=== PATIENT | female | born 1970 | race Caucasian/White ===

== ENCOUNTER 2017-08-02 16:38 | Emergency (ER) | payer BC, OTHER ==
[~2017-08-02] VITALS: Ht 165.1 cm; Wt 59.0 kg
[~2017-08-02 16:38] MED LIST: LORA-953; TRIA5PAS4
[2017-08-02 16:59] VITALS: BP 130/86
[2017-08-02] MEDS ORDERED: LIDOCAINE 1% INJ 50 ML MDV IJ ONE ×2 (17:14→17:30)
[2017-08-02] MEDS ORDERED: TDAP [DIPH/PERTUSSIS/TET] 0.5 ML VIAL IM ONE ×2 (17:30→17:53)
[2017-08-02] MEDS ORDERED: MUPIROCIN OINT 2% 22 GM TUBE TP ONE (18:00)
[2017-08-02] MEDS ORDERED: MUPIROCIN OINT 2% 22 GM TUBE ONE (18:12)
== END 2017-08-02 18:22 | disposition home or self-care (01) ==
LOC: ER 16:39
DX: L03.011 Cellulitis of right finger (principal); L02.511 Cutaneous abscess of right hand; Z88.0 Allergy status to penicillin; Z91.040 Latex allergy status; Z90.710 Acquired absence of both cervix and uterus
CPT/HCPCS: 90715; A4606; A6402; J3490; Z7610

== ENCOUNTER 2018-05-03 15:32 | Outpatient (CLI) | payer BC ==
[2018-05-03 18:35] LABS: APPEARANCE,URINE CLEAR (CLEAR); BASOPHILS # (AUTO) 0.1 /CMM (0.0-0.2); BASOPHILS % (AUTO) 0.9 % (0.0-2.0); BILIRUBIN,URINE NEGATIVE (NEGATIVE); BLOOD, URINE TRACE Ery/uL (NEGATIVE); COLOR,URINE YELLOW (YELLOW); EOSINOPHILS % (AUTO) 1.5 % (0.0-6.0); HEMATOCRIT 44 % (33-45); HEMOGLOBIN 14.7 g/dL (11.5-14.8); KETONES,URINE NEGATIVE (NEGATIVE); LEUKOCYTE ESTERASE ,URINE NEGATIVE (NEGATIVE); LYMPHOCYTES # (AUTO) 1.9 /CMM (0.8-4.8); LYMPHOCYTES % (AUTO) 30.1 % (20.0-44.0); MEAN CORPUSCULAR HGB CONC 33 g/dl (31.0-36.0); MEAN CORPUSCULAR VOLUME 94 fL (82-100); MONOCYTES # (AUTO) 0.3 /CMM (0.1-1.30); NEUTROPHILS # (AUTO) 3.9 /CMM (1.8-8.9); NEUTROPHILS % (AUTO) 62.5 % (43.0-81.0); NITRITE, URINE NEGATIVE (NEGATIVE); PH,URINE 5.5 (5.0-8.0); PLATELET COUNT (AUTO) 283 /CMM (150-450); PROTEIN,URINE NEGATIVE (NEGATIVE); RED BLOOD CELL COUNT(AUTO) 4.66 MIL/uL (4.0-5.2); UGLUCOSE NEGATIVE (NEGATIVE); UROBILINOGEN,URINE 0.2 EU/dL (0.2); WHITE BLOOD COUNT (AUTO) 6.3 K/uL (4.3-11.0)
[2018-05-03 18:56] LABS: ALBUMIN 4.3 g/dL (3.4-5.0); BILIRUBIN,TOTAL 0.5 mg/dL (0.2-1.0); CALCIUM, SERUM 9.4 mg/dL (8.5-10.1); CREATININE 0.7 mg/dL (0.6-1.3); POTASSIUM 3.3 mmol/L (3.5-5.1); TOTAL PROTEIN, SERUM 7.6 g/dL (6.4-8.2)
[2018-05-03 19:04] LABS: BACTERIA,URINE Few /HPF (None Seen); RBC,URINE 0-2 /HPF (0-2); SQUAMOUS EPITHELIAL CELL,UR Few /HPF (None Seen); WBC,URINE 0-2 /HPF (0-3)
[2018-05-03 19:07] LABS: THYROID STIMULATING HORMONE 2.409 uIU/mL (0.358-3.74)
[2018-05-07 14:09] LABS: IMMUNOGLOBULIN E,TOTAL 25 IU/mL (0-100)
[2018-05-12 14:13] LABS: *FOLIC ACID 3.6 ng/mL (>3.0)
== END 2018-05-03 23:59 | disposition home or self-care (01) ==
LOC: LAB 15:32
PROVIDERS: ATTEND Legal Medicine
DX: Z00.00 Encounter for general adult medical examination without abnormal findings (principal); E03.9 Hypothyroidism, unspecified; D64.9 Anemia, unspecified; R10.9 Unspecified abdominal pain; E55.9 Vitamin D deficiency, unspecified
CPT/HCPCS: 36415; 80053-TC; 80061-TC; 81000-TC; 82306; 82728-TC; 82785; 83540-TC; 83550-TC; 84439-TC; 84443-TC; 85025-TC; 86003

== ENCOUNTER 2018-10-27 09:30 | Outpatient (CLI) | payer BC | END 2018-10-27 23:59 | disposition home or self-care (01) | LOC: WOU 09:30 | PROVIDERS: ATTEND Podiatrist Foot & Ankle Surgery | DX: L60.3 Nail dystrophy (principal); L03.032 Cellulitis of left toe; M79.675 Pain in left toe(s); Z88.6 Allergy status to analgesic agent; Z91.040 Latex allergy status; Z88.0 Allergy status to penicillin; Z91.09 Other allergy status, other than to drugs and biological substances; Z98.82 Breast implant status; Z90.710 Acquired absence of both cervix and uterus | CPT/HCPCS: G0463 ==

== ENCOUNTER 2018-12-01 13:25 | Outpatient (CLI) | payer BC ==
[2018-12-01] MEDS ORDERED: PHENOL TP ONE (14:00)
== END 2018-12-01 23:59 | disposition home or self-care (01) ==
LOC: WOU 13:25
PROVIDERS: ATTEND Podiatrist Foot & Ankle Surgery
DX: L60.3 Nail dystrophy (principal); L03.032 Cellulitis of left toe; M79.675 Pain in left toe(s); Z88.1 Allergy status to other antibiotic agents; Z91.040 Latex allergy status; Z88.5 Allergy status to narcotic agent; Z91.09 Other allergy status, other than to drugs and biological substances
CPT/HCPCS: 11750; A6402

== ENCOUNTER 2019-02-09 09:00 | Outpatient (CLI) | payer BC ==
[~2019-02-09 09:00] MED LIST changes: +PHENOL MC ONE
== END 2019-02-09 23:59 | disposition home or self-care (01) ==
LOC: WOU 09:00
PROVIDERS: ATTEND Podiatrist Foot & Ankle Surgery
DX: L60.3 Nail dystrophy (principal); L03.032 Cellulitis of left toe; M79.672 Pain in left foot
CPT/HCPCS: 11750; J3490

== ENCOUNTER 2019-02-16 10:00 | Outpatient (CLI) | payer BC ==
[~2019-02-16 10:00] MED LIST changes: -PHENOL MC ONE
== END 2019-02-16 23:59 | disposition home or self-care (01) ==
LOC: WOU 10:00
PROVIDERS: ATTEND Podiatrist Foot & Ankle Surgery
DX: L60.3 Nail dystrophy (principal); L03.032 Cellulitis of left toe; M79.675 Pain in left toe(s)
CPT/HCPCS: G0463

== ENCOUNTER 2021-06-13 14:03 | Emergency (ER) | payer BC ==
[~2021-06-13] VITALS: Ht 165.1 cm; Wt 46.7 kg
[2021-06-13 14:14] VITALS: BP 129/88
[2021-06-13] MEDS ORDERED: IBUP-1955 PO (14:36)
--- NOTE | 2021-06-13 14:40 | NUR ---
COVID ANTIGEN AND PCR SWABS DONE AND SENT TO THE LAB
--- NOTE | 2021-06-13 15:03 | NUR ---
Patient discharged to home in stable condition. Written and verbal after care instructions given. Patient verbalizes understanding of instruction.
--- NOTE | 2021-06-16 13:18 | NUR ---
CALLED PATIENT FOR COVID RESULT. DID NOT ANSWER. LEFT A VOICE MAIL.
== END 2021-06-13 15:04 | disposition home or self-care (01) ==
LOC: ER 14:08
DX: R51.9 Headache, unspecified (principal); Z20.822 Contact with and (suspected) exposure to COVID-19; R68.83 Chills (without fever); Z98.890 Other specified postprocedural states; Z88.0 Allergy status to penicillin; Z91.040 Latex allergy status; Z60.2 Problems related to living alone; Z79.899 Other long term (current) drug therapy
CPT/HCPCS: 87426; 99283; C9803; U0003

== ENCOUNTER 2022-01-19 13:38 | Outpatient (CLI) | payer BC ==
[~2022-01-19 13:38] MED LIST changes: +IBUP-1955 PO
[2022-01-19 15:14] LABS: BASOPHILS % (AUTO) 0.9 % (0.0-2.0); EOSINOPHILS % (AUTO) 2.3 % (0.0-6.0); HEMATOCRIT 42 % (33-45); HEMOGLOBIN 13.9 g/dL (11.5-14.8); LYMPHOCYTES # (AUTO) 1.3 K/uL (0.8-4.8); LYMPHOCYTES % (AUTO) 26.6 % (20.0-44.0); MEAN CORPUSCULAR HGB CONC 33 g/dl (31.0-36.0); MEAN CORPUSCULAR VOLUME 94 fL (82-100); MONOCYTES # (AUTO) 0.3 K/uL (0.1-1.30); MONOCYTES % (AUTO) 5.1 % (2.0-12.0); NEUTROPHILS # (AUTO) 3.2 K/uL (1.8-8.9); NEUTROPHILS % (AUTO) 65.1 % (43.0-81.0); PLATELET COUNT (AUTO) 285 K/uL (150-450); RED BLOOD CELL COUNT(AUTO) 4.47 MIL/uL (4.0-5.2)
[2022-01-19 15:32] LABS: BILIRUBIN,URINE NEGATIVE (NEGATIVE); COLOR,URINE YELLOW (YELLOW); LEUKOCYTE ESTERASE ,URINE NEGATIVE (NEGATIVE); NITRITE, URINE NEGATIVE (NEGATIVE); PH,URINE 5.5 (5.0-8.0); PROTEIN,URINE NEGATIVE (NEGATIVE); UGLUCOSE NEGATIVE (NEGATIVE); UROBILINOGEN,URINE 0.2 EU/dL (0.2)
[2022-01-19 15:56] LABS: FREE T4 (FREE THYROXINE) 0.83 ng/dL (0.76-1.46); THYROID STIMULATING HORMONE 1.81 uIU/mL (0.358-3.74)
[2022-01-19 16:07] LABS: ALBUMIN 4.1 g/dL (3.4-5.0); BILIRUBIN,TOTAL 0.6 mg/dL (0.2-1.0); CALCIUM, SERUM 9.3 mg/dL (8.5-10.1); CREATININE 0.8 mg/dL (0.6-1.3); POTASSIUM 4.1 mmol/L (3.5-5.1); TOTAL PROTEIN, SERUM 7.2 g/dL (6.4-8.2)
[2022-01-20 04:06] LABS: FOLLICLE STIMULATION HORMONE 58.1 mIU/mL (.); LUTEINIZING HORMONE 25.8 mIU/mL (.); PROLACTIN 9.9 ng/mL (4.8-23.3)
== END 2022-01-19 23:59 | disposition home or self-care (01) ==
LOC: LAB 13:38
PROVIDERS: ATTEND Legal Medicine
DX: Z00.00 Encounter for general adult medical examination without abnormal findings (principal); E11.9 Type 2 diabetes mellitus without complications; E55.9 Vitamin D deficiency, unspecified; E78.00 Pure hypercholesterolemia, unspecified; R53.1 Weakness; E03.9 Hypothyroidism, unspecified; D64.9 Anemia, unspecified
CPT/HCPCS: 36415; 80053-TC; 80061-TC; 82306; 82607-TC; 82626; 82670; 82728-TC; 83001; 83002; 83540-TC; 84146; 84403; 84439-TC; 84443-TC; 85025-TC

== ENCOUNTER 2022-04-14 13:24 | Outpatient (CLI) | payer BC | END 2022-04-14 23:59 | disposition home or self-care (01) | LOC: LAB 13:24 | PROVIDERS: ATTEND Internal Medicine Gastroenterology | DX: Z01.812 Encounter for preprocedural laboratory examination (principal); Z20.822 Contact with and (suspected) exposure to COVID-19 | CPT/HCPCS: U0003; C9803 ==

== ENCOUNTER 2022-04-20 10:01 | Day surgery (SDC) | payer BC ==
[2022-04-20 10:53] LABS: BASOPHILS % (AUTO) 1.2 % (0.0-2.0); EOSINOPHILS % (AUTO) 3.2 % (0.0-6.0); HEMATOCRIT 42 % (33-45); LYMPHOCYTES # (AUTO) 1.3 K/uL (0.8-4.8); LYMPHOCYTES % (AUTO) 40.6 % (20.0-44.0); MEAN CORPUSCULAR HGB CONC 33 g/dl (31.0-36.0); MEAN CORPUSCULAR VOLUME 91 fL (82-100); MONOCYTES # (AUTO) 0.3 K/uL (0.1-1.30); MONOCYTES % (AUTO) 8.9 % (2.0-12.0); NEUTROPHILS # (AUTO) 1.5 K/uL (1.8-8.9); NEUTROPHILS % (AUTO) 46.1 % (43.0-81.0); PLATELET COUNT (AUTO) 312 K/uL (150-450); RED BLOOD CELL COUNT(AUTO) 4.66 MIL/uL (4.0-5.2); WHITE BLOOD COUNT (AUTO) 3.3 K/uL (4.3-11.0)
[2022-04-20 11:05] LABS: CALCIUM, SERUM 9.7 mg/dL (8.5-10.1); CREATININE 0.8 mg/dL (0.6-1.3); POTASSIUM 4.1 mmol/L (3.5-5.1)
== END 2022-04-20 12:50 | disposition home or self-care (01) ==
LOC: DS 10:01
PROVIDERS: ATTEND Internal Medicine Gastroenterology
DX: Z12.11 Encounter for screening for malignant neoplasm of colon (principal); K64.8 Other hemorrhoids; Z88.0 Allergy status to penicillin; Z88.8 Allergy status to other drugs, medicaments and biological substances; Z98.890 Other specified postprocedural states; Z79.899 Other long term (current) drug therapy
CPT/HCPCS: 45378; 71045; 85025; 80048; 36415; 93005; J2704; J7030; J3490

== ENCOUNTER 2023-03-10 11:16 | Outpatient (CLI) | payer BC ==
[2023-03-10 13:11] LABS: BASOPHILS # (AUTO) 0.1 K/uL (0.0-0.2); BASOPHILS % (AUTO) 1.7 % (0.0-2.0); EOSINOPHILS # (AUTO) 0.2 K/uL (0.0-0.7); EOSINOPHILS % (AUTO) 3.8 % (0.0-6.0); HEMATOCRIT 40 % (33-45); HEMOGLOBIN 13.2 g/dL (11.5-14.8); LYMPHOCYTES # (AUTO) 1.6 K/uL (0.8-4.8); LYMPHOCYTES % (AUTO) 37.2 % (20.0-44.0); MEAN CORPUSCULAR HEMOGLOBIN 28 PG (26.0-33.0); MEAN CORPUSCULAR HGB CONC 33 g/dl (31.0-36.0); MEAN CORPUSCULAR VOLUME 85 fL (82-100); MONOCYTES # (AUTO) 0.3 K/uL (0.1-1.30); MONOCYTES % (AUTO) 7.1 % (2.0-12.0); NEUTROPHILS # (AUTO) 2.1 K/uL (1.8-8.9); NEUTROPHILS % (AUTO) 50.2 % (43.0-81.0); PLATELET COUNT (AUTO) 296 K/uL (150-450); RED BLOOD CELL COUNT(AUTO) 4.66 MIL/uL (4.0-5.2); RED CELL DISTRIBUTION WIDTH 14.6 % (11.5-15.0); WHITE BLOOD COUNT (AUTO) 4.2 K/uL (4.3-11.0)
[2023-03-10 13:12] LABS: APPEARANCE,URINE CLEAR (CLEAR); BILIRUBIN,URINE NEGATIVE (NEGATIVE); BLOOD, URINE NEGATIVE Ery/uL (NEGATIVE); COLOR,URINE YELLOW (YELLOW); KETONES,URINE NEGATIVE (NEGATIVE); LEUKOCYTE ESTERASE ,URINE NEGATIVE (NEGATIVE); NITRITE, URINE NEGATIVE (NEGATIVE); PH,URINE 6.5 (5.0-8.0); PROTEIN,URINE NEGATIVE (NEGATIVE); UGLUCOSE NEGATIVE (NEGATIVE); UROBILINOGEN,URINE 0.2 EU/dL (0.2)
[2023-03-10 13:37] LABS: BILIRUBIN,TOTAL 0.4 mg/dL (0.2-1.0); CALCIUM, SERUM 9.8 mg/dL (8.5-10.1); CREATININE 0.8 mg/dL (0.6-1.3); FREE T4 (FREE THYROXINE) 0.84 ng/dL (0.76-1.46); POTASSIUM 3.9 mmol/L (3.5-5.1)
[2023-03-10 13:38] LABS: TOTAL PROTEIN, SERUM 7.4 g/dL (6.4-8.2)
[2023-03-10 14:05] LABS: THYROID STIMULATING HORMONE 1.772 uIU/mL (0.358-3.74)
[2023-03-11 07:07] LABS: ESTRADIOL (*R) <5.0 pg/mL (.); LUTEINIZING HORMONE 45.4 mIU/mL (.); PROLACTIN 13.8 ng/mL (4.8-23.3)
[2023-03-11 08:07] LABS: VIT D, 25-HYDROXY 58.1 ng/mL (30.0-100.0)
[2023-03-11 11:07] LABS: FOLIC ACID 5.9 ng/mL (>3.0)
[2023-03-17 16:07] LABS: *TESTOSTERONE, FREE (DIRECT) <0.2 pg/mL (0.0-4.2)
== END 2023-03-10 23:59 | disposition home or self-care (01) ==
LOC: LAB 11:16
PROVIDERS: ATTEND Legal Medicine
DX: Z00.00 Encounter for general adult medical examination without abnormal findings (principal); E11.9 Type 2 diabetes mellitus without complications; E55.9 Vitamin D deficiency, unspecified; R53.1 Weakness; E03.9 Hypothyroidism, unspecified; D64.9 Anemia, unspecified
CPT/HCPCS: 36415; 80053-TC; 80061-TC; 82306; 82607-TC; 82670; 82728-TC; 83001; 83002; 83540-TC; 84146; 84402-TC; 84439-TC; 84443-TC; 85025-TC